=== PATIENT | male | born 1950 | race African-American/Black ===

== ENCOUNTER 2022-04-21 14:49 | Inpatient (IN) | payer OTHER, MEDICARE ==
[~2022-04-21] VITALS: Ht 180.3 cm; Wt 152.6 kg
[~2022-04-21 14:49] MED LIST: ALLOPURINOL300 MG PO; AMARYL4 MG PO; ASPIRIN EC81 MG PO; CARDURA4 MG PO; CLARITIN10 MG PO; DORZOLAMIDE HCL10 ML OU; FEOSOL325 MG PO; LASIX20 MG PO; LISINOPRIL-HCT1 EAC1 PO; METFORMIN HCL500 MG PO; NORVASC 5MG TABL5 MG PO; VITAMIN D21250 MCG PO
[2022-04-21 15:27] LABS: BASOPHIL 0.3 % (0-2); EOSINOPHIL 1.5 % (0-7); HCT 41.4 % (42.0-52.0); LYMPHOCYTE 19.1 % (15-48); MCHC 31.4 g/dL (32.0-36.0); MCV 89.2 fL (78.0-100.0); MONOCYTE 8.9 % (0-12); MPV 10.5 fL (6.0-9.5); NEUTROPHIL 69.9 % (41-80); NRBC 0; PLT 103 K/uL (150-400); RBC 4.64 M/uL (4.70-6.00); RDW 15.2 % (11.5-14.0); WBC 3.9 K/uL (4.0-10.5)
[2022-04-21 15:31] LABS: INR 1.3 (0.9-1.2); PROTHROMBIN TIME 15.5 SECONDS (11.8-13.4); PTT 33.8 SECONDS (24.4-34.7)
[2022-04-21 15:48] LABS: LACTIC ACID 0.9 mmol/L (0.4-1.9)
[2022-04-21 15:49] LABS: BUN/CREAT RATIO (CALC) 33.3 RATIO; CREATININE 0.87 mg/dL (0.67-1.17); POTASSIUM 4.5 mmol/L (3.5-5.1)
[2022-04-21 17:40] LABS: BILIRUBIN NEGATIVE (NEGATIVE); BLOOD 2+ Ery/uL (NEGATIVE); CLARITY CLEAR (CLEAR); COLOR YELLOW (YELLOW); GLUCOSE (U) NORMAL (NORMAL); LEUKOCYTES NEGATIVE Leu/uL (NEGATIVE); NITRITE NEGATIVE (NEGATIVE); PROTEIN NEGATIVE (NEGATIVE)
[2022-04-21 17:49] LABS: BACTERIA TRACE; RENAL EPITHELIAL CELLS RARE; SQUAMOUS EPITHELIAL CELLS RARE; TRANSITIONAL EPITHELIAL CELLS RARE; URINARY RBC 20-50; URINARY WBC RARE
[2022-04-21] MEDS ORDERED: AMARYL4 MG PO (20:31)
[2022-04-21] MEDS ORDERED: AMARYL2 MG PO (20:32)
[2022-04-21] MEDS ORDERED: CLARITIN10 M2 PO (20:32)
[2022-04-21] MEDS ORDERED: TADALAFIL5 MG PO (20:33)
[2022-04-21] MEDS ORDERED: LASIX20 MG PO (20:34)
[2022-04-21] MEDS ORDERED: ALLEGRA ALLERG180 MG PO (20:35)
[2022-04-21] MEDS ORDERED: CARDURA2 MG PO (20:40)
[2022-04-21] MEDS ORDERED: NORVASC5 MG PO (20:40)
[2022-04-21] MEDS ORDERED: DRISDOL50000 UNIT PO (20:41)
[2022-04-21] MEDS ORDERED: METFORMIN HCL500 M3 PO (20:42)
[2022-04-21] MEDS ORDERED: FEROSUL325 MG PO (20:43)
[2022-04-21] MEDS ORDERED: ALLOPURINOL300 MG PO (20:43)
[2022-04-21] MEDS ORDERED: LISINOPRIL-HCT1 EAC1 PO (20:44)
[2022-04-21] MEDS ORDERED: VENTOLIN HFA IN18 GM INH (20:46)
[2022-04-21] MEDS ORDERED: AMOX TR-K CLV1 EAC4 PO (20:48)
[2022-04-21] MEDS ORDERED: DORZOLAMIDE-TIM10 ML EYEBOTH (20:51)
[2022-04-21] MEDS ORDERED: FLONASE ALLERG9.9 ML (20:53)
[2022-04-21 22:28] LABS: BUN 29 mg/dL (7-18); BUN/CREAT RATIO (CALC) 36.2 RATIO; CHLORIDE 91 mmol/L (98-107); CO2 (BICARBONATE) 38 mmol/L (21-32); POTASSIUM 4.3 mmol/L (3.5-5.1)
[2022-04-21 22:29] LABS: GLUCOSE 45 mg/dL (74-106)
[2022-04-22 04:06] LABS: BASOPHIL 0.3 % (0-2); EOSINOPHIL 0.6 % (0-7); HCT 40.6 % (42.0-52.0); HGB 12.7 g/dl (13.2-18.0); LYMPHOCYTE 18.6 % (15-48); MCH 28.2 pg (25.0-31.0); MCHC 31.3 g/dL (32.0-36.0); MONOCYTE 14.1 % (0-12); MPV 10.6 fL (6.0-9.5); NEUTROPHIL 66.1 % (41-80); NRBC 0; PLT 108 K/uL (150-400); RBC 4.51 M/uL (4.70-6.00); WBC 3.3 K/uL (4.0-10.5)
[2022-04-22 04:20] LABS: INR 1.29 (0.9-1.2); PROTHROMBIN TIME 15.4 SECONDS (11.8-13.4)
[2022-04-22 04:33] LABS: ALBUMIN 3.2 g/dL (3.4-5.0); BILIRUBIN - DIRECT 0.5 mg/dL (0.00-0.20); BILIRUBIN - TOTAL 0.9 mg/dL (0.2-1.0); CREATININE 0.87 mg/dL (0.67-1.17); GLOBULIN (CALCULATION) 3.8 g/dL; POTASSIUM 4.3 mmol/L (3.5-5.1)
--- NOTE | 2022-04-22 19:25 | NUR ---
PATIENT SHOWED SIGNS OF LETHARGY AND CHANGE IN MENTAL STATUS THIS MORNING; ABG OBTAINED SHOWED HYPERCAPNIA. PATIENT WAS PLACED ON BIPAP SETTINGS PER RT AND ABG WAS REPEATED APPROXIMATELY 1 HOUR LATER WITH MINIMAL IMPROVEMENT. MD DISCUSSED SITUATION WITH FAMILY AND DECIDED THAT INTUBATION WOULD BE BEST. ANESTHESIA AT BEDSIDE TO INTUBATE AT 1600. RSI KIT UTILIZED FOR INTUBATION. RIJ CENTRAL LINE PLACED AT BEDSIDE BY DR DONATO. LEFT RADIAL A LINE PLACED AT BEDSIDE BY ANESTHESIA. PATIENT SEDATED WITH PROPOFOL, FENTANYL, VERSED GTT; DIFFICULT TO ADEQUATELY SEDATE, SO PRN PUSHES OF FENTANYL AND VERSED ORDERED BY MD. NORCURON ORDERED DUE TO DIFFICULTY OXYGENATING AND VENTILATING.
[2022-04-22 21:24] LABS: ALBUMIN 3.2 g/dL (3.4-5.0); BILIRUBIN - TOTAL 1.4 mg/dL (0.2-1.0); BUN/CREAT RATIO (CALC) 24.4 RATIO; CREATININE 1.19 mg/dL (0.67-1.17); GLOBULIN (CALCULATION) 3.8 g/dL; POTASSIUM 5.5 mmol/L (3.5-5.1)
== END 2022-04-23 02:34 | disposition other institution (70) | DRG 208 ==
LOC: FER 14:49 → FICU 16:43
PROVIDERS: Emergency Medicine; Internal Medicine; ADMIT Family Medicine
PROC: 5A09357 Assistance with Respiratory Ventilation, Less than 24 Consecutive Hours, Continuous Positive Airway Pressure (ICD-10-PCS; 2022-04-21)
PROC: 5A1935Z Respiratory Ventilation, Less than 24 Consecutive Hours (ICD-10-PCS; principal; 2022-04-22)
PROC: 0BH17EZ Insertion of Endotracheal Airway into Trachea, Via Natural or Artificial Opening (ICD-10-PCS; 2022-04-22)
PROC: 02HV33Z Insertion of Infusion Device into Superior Vena Cava, Percutaneous Approach (ICD-10-PCS; 2022-04-22)
PROC: 03HY32Z Insertion of Monitoring Device into Upper Artery, Percutaneous Approach (ICD-10-PCS; 2022-04-22)
PROC: 4A133B1 Monitoring of Arterial Pressure, Peripheral, Percutaneous Approach (ICD-10-PCS; 2022-04-22)
PROC: 4A133J1 Monitoring of Arterial Pulse, Peripheral, Percutaneous Approach (ICD-10-PCS; 2022-04-22)
PROC: 03HY32Z Insertion of Monitoring Device into Upper Artery, Percutaneous Approach (ICD-10-PCS; 2022-04-22)
PROC: 4A133B1 Monitoring of Arterial Pressure, Peripheral, Percutaneous Approach (ICD-10-PCS; 2022-04-22)
PROC: 4A133J1 Monitoring of Arterial Pulse, Peripheral, Percutaneous Approach (ICD-10-PCS; 2022-04-22)
PROC: 3E033XZ Introduction of Vasopressor into Peripheral Vein, Percutaneous Approach (ICD-10-PCS; 2022-04-22)
PROC: 5A09357 Assistance with Respiratory Ventilation, Less than 24 Consecutive Hours, Continuous Positive Airway Pressure (ICD-10-PCS; 2022-04-22)
PROC: B24BZZZ Ultrasonography of Heart with Aorta (ICD-10-PCS; 2022-04-22)
DX: J96.01 Acute respiratory failure with hypoxia (principal); R57.0 Cardiogenic shock; D61.818 Other pancytopenia; E87.1 Hypo-osmolality and hyponatremia; J96.02 Acute respiratory failure with hypercapnia; Z20.822 Contact with and (suspected) exposure to COVID-19; I48.0 Paroxysmal atrial fibrillation; I27.20 Pulmonary hypertension, unspecified; E11.649 Type 2 diabetes mellitus with hypoglycemia without coma; D50.9 Iron deficiency anemia, unspecified; I10 Essential (primary) hypertension; H40.9 Unspecified glaucoma; E11.9 Type 2 diabetes mellitus without complications; R29.6 Repeated falls; G47.33 Obstructive sleep apnea (adult) (pediatric); E66.01 Morbid (severe) obesity due to excess calories; E87.70 Fluid overload, unspecified; Z85.46 Personal history of malignant neoplasm of prostate; Z98.890 Other specified postprocedural states; Z82.49 Family history of ischemic heart disease and other diseases of the circulatory system; Z79.84 Long term (current) use of oral hypoglycemic drugs; Z90.79 Acquired absence of other genital organ(s)
CPT/HCPCS: 31500; 36415; 36600; 71045; 80048; 80053; 80076; 81001; 82803; 82962; 83036; 83605; 83735; 83880; 84145; 84439; 84443; 84484; 85025; 85610; 85730; 86140; 87040; 93005; 94002; 94010; 94660; J0282; J1250; J1940; J2250; J2405; J2704; J3010; J7030; J7050; J7060; U0002